=== PATIENT | female | born 1975 | race Caucasian/White ===

== ENCOUNTER 2020-05-18 08:00 | Outpatient (CLI) | payer BC, OTHER ==
[2020-05-18 07:56] LABS: BASOPHILS % (AUTO) 0.5 %; EOSINOPHILS # (AUTO) 0.2 10^3/uL (0.0-0.7); EOSINOPHILS % (AUTO) 3.2 %; HGB - HEMOGLOBIN 14.4 g/dL (12.0-16.0); LYMPHOCYTES # (AUTO) 1.7 10^3/uL (1.5-3.5); LYMPHOCYTES % (AUTO) 26.9 %; MEAN CORPUSCULAR HEMOGLOBIN 29.3 pg (27.0-31.0); MEAN CORPUSCULAR HGB CONC 32.1 g/dL (32.0-36.0); MEAN CORPUSCULAR VOLUME 91.4 fL (81.0-99.0); MEAN PLATELET VOLUME 8.3 fL (7.9-10.8); MONOCYTES # (AUTO) 0.4 10^3/uL (0.0-1.0); NEUTROPHILS % (AUTO) 62.5 %; PLT - PLATELET COUNT 209 10^3/uL (130-450); RED BLOOD COUNT 4.91 10^6/uL (4.20-5.40); RED CELL DISTRIBUTION WIDTH 12.8 % (12.0-15.0); WHITE BLOOD COUNT 6.3 x10^3/uL (4.8-10.8)
[2020-05-18 08:29] LABS: % IRON SATURATION 15 % (20-50); IRON 69 ug/dL (28-170); TOTAL IRON BINDING CAPACITY 469 ug/dL (250-450); TRANSFERRIN 335 mg/dL (192-382)
== END 2020-05-18 23:59 | disposition home or self-care (01) ==
LOC: LAB 08:00
PROVIDERS: ATTEND Physician Assistant
DX: D50.9 Iron deficiency anemia, unspecified (principal)
CPT/HCPCS: 36415; 82728; 83540; 84466; 85025

== ENCOUNTER 2020-08-08 08:20 | Outpatient (CLI) | payer BC ==
--- NOTE | 2020-08-09 12:20 | Mammography Report ---
BILATERAL DIGITAL DIAGNOSTIC MAMMOGRAM 3D/2D: 08/08/2020 CLINICAL: Diffuse left breast pain. Comparison is made to exams dated: 08/15/2019 mammogram, 12/28/2018 mammogram, 03/08/2018 mammogram, an d 02/20/2016 mammogram - [facility]. There are scattered fibroglandular elements in both vincent sts. The patient is status post reduction both breasts. No significant masses, calcifications, or other findings are seen in either breast. IMPRESSION: INCOMPLETE: NEEDS ADDITIONAL IMAGING EVALUATION There is no abnormality seen in the left breast to correspond with the area of clinical concern and p ain at 12 o'clock axis or in the sub-areolar depth. An ultrasound is recommended for further evaluat ion and is scheduled to immediately follow this examination. This exam was interpreted at Station ID: [id number]. NOTE: For mammograms, a report in lay terms will be sent to the patient. Approximately 15% of breast malignancies will not be visualized mammographically. In the management of a palpable breast mass, a negative mammogram must not discourage biopsy of a clinically suspicious lesion. Electronically Signed By: Sekou Pérez M.D. aty/:08/08/2020 09:25:11 ACR BI-RADS Category 0: Incomplete 3340F PARENCHYMAL PATTERN: (A) - The breast(s) demonstrate(s) scattered fibroglandular densities. BI-RADS CATEGORY: (0) - 0 Ultrasound [id number] Immediate follow-up LATERALITY: (L)
--- NOTE | 2020-08-09 12:20 | Ultrasound Report ---
LIMITED ULTRASOUND OF LEFT BREAST: 08/08/2020 CLINICAL: Diffuse left breast pain. Comparison is made to exams dated: 08/08/2020 mammogram - [facility], 08/15/2019 mamm ogram, 08/15/2019 ultrasound, 12/28/2018 mammogram, 12/28/2018 ultrasound, and 03/08/2018 mammogram - [facility]. Real-time ultrasound of the left breast 12 o'clock, and retroareolar regions was performed. Wagner sc agustin images of the real-time examination were reviewed. No significant abnormalities were seen sonographically in the left breast. IMPRESSION: NEGATIVE There is no sonographic evidence of malignancy. There is no abnormality seen in the left breast to correspond with the area of clinical concern and p ain along the 12 o'clock axis or in the retroareolar breast, however, recommend clinical follow up fo r persistent or worsening symptoms, or development of any clinically suspicious findings. A 1 year screening mammogram is recommended. Findings and recommendations were conveyed to the patient during today's evaluation. This exam was interpreted at Station ID: [id number]. Electronically Signed By: Sekou Pérez M.D. aty/:08/08/2020 09:44:16 Ultrasound BI-RADS: 1 Negative BI-RADS CATEGORY: (1) - 1 RECOMMENDATION: (ANNUAL) - Recommend routine annual screening mammography. [id number] 1 year screening LATERALITY: (B)
== END 2020-08-08 08:21 | disposition home or self-care (01) ==
LOC: DI 08:20
PROVIDERS: ATTEND Physician Assistant
DX: N64.4 Mastodynia (principal); N64.59 Other signs and symptoms in breast

== ENCOUNTER 2021-10-28 06:44 | Outpatient (CLI) | payer BC ==
[2021-10-28 07:13] LABS: BASOPHILS % (AUTO) 0.4 %; EOSINOPHILS # (AUTO) 0.1 10^3/uL (0.0-0.7); EOSINOPHILS % (AUTO) 2.2 %; HGB - HEMOGLOBIN 14.3 g/dL (12.0-16.0); LYMPHOCYTES # (AUTO) 1.7 10^3/uL (1.5-3.5); LYMPHOCYTES % (AUTO) 33.5 %; MEAN CORPUSCULAR HEMOGLOBIN 28.9 pg (27.0-31.0); MEAN CORPUSCULAR HGB CONC 32.5 g/dL (32.0-36.0); MEAN CORPUSCULAR VOLUME 88.9 fL (81.0-99.0); MONOCYTES # (AUTO) 0.3 10^3/uL (0.0-1.0); MONOCYTES % (AUTO) 5.8 %; NEUTROPHILS # (AUTO) 2.9 10^3/uL (1.5-6.6); NEUTROPHILS % (AUTO) 57.7 %; PLT - PLATELET COUNT 241 10^3/uL (130-450); RED BLOOD COUNT 4.95 10^6/uL (4.20-5.40); RED CELL DISTRIBUTION WIDTH 12.9 % (12.0-15.0)
[2021-10-28 07:18] LABS: ALBUMIN 4.4 g/dL (3.2-5.5); ALBUMIN/GLOBULIN RATIO 1.6 (1.0-2.2); ALKALINE PHOSPHATASE 35 IU/L (42-121); ALT ALANINE AMINOTRANSFERASE 11 IU/L (10-60); AST ASPARTATE AMINOTRANSFERASE 15 IU/L (10-42); BILIRUBIN,TOTAL 0.7 mg/dL (0.2-1.0); BUN - BLOOD UREA NITROGEN 10 mg/dL (6-20); CALCIUM 9.1 mg/dL (8.5-10.3); CARBON DIOXIDE - CO2 26 mmol/L (21-32); CHLORIDE 106 mmol/L (101-111); CHOLESTEROL 174 mg/dL; CREATININE 0.8 mg/dL (0.4-1.0); GFR - MDRD 77 (>89); GLUCOSE 122 mg/dL (70-100); HDL CHOLESTEROL 44 mg/dL; LDL CHOLESTEROL,CALCULATED 105 mg/dL; LDL/HDL RATIO 2.4 (<4.4); POTASSIUM 3.8 mmol/L (3.5-5.0); SODIUM 142 mmol/L (135-145); TOTAL PROTEIN 7.2 g/dL (6.7-8.2); TRIGLYCERIDES 126 mg/dL; VLDL CHOLESTEROL 25 mg/dL
[2021-10-28 07:29] LABS: THYROID STIMULATING HORMONE 3.13 uIU/mL (0.34-5.60)
== END 2021-10-28 06:45 | disposition home or self-care (01) ==
LOC: LAB 06:44
PROVIDERS: ATTEND Registered Nurse
DX: D64.9 Anemia, unspecified (principal); E88.81 Metabolic syndrome and other insulin resistance; Z13.220 Encounter for screening for lipoid disorders; Z13.29 Encounter for screening for other suspected endocrine disorder
CPT/HCPCS: 36415; 80053; 80061; 83721; 84443; 85025

== ENCOUNTER 2021-12-16 06:45 | Outpatient (CLI) | payer BC | END 2021-12-16 06:46 | disposition home or self-care (01) | LOC: LAB 06:45 | PROVIDERS: ATTEND Registered Nurse | DX: R73.9 Hyperglycemia, unspecified (principal) | CPT/HCPCS: 36415; 82947 ==

== ENCOUNTER 2022-01-24 12:33 | Outpatient (CLI) | payer BC ==
--- NOTE | 2022-01-27 11:10 | Mammography Report ---
BILATERAL DIGITAL DIAGNOSTIC MAMMOGRAM 3D/2D: 01/24/2022 CLINICAL: Diffuse chronic left breast numbness. Due for Bilateral. Comparison is made to exams dated: 08/08/2020 mammogram - [facility], 08/15/2019 mamm ogram, 12/28/2018 mammogram, 03/08/2018 mammogram, 02/20/2016 mammogram - [facility], and 08/09/19 ultrasound - [facility]. There are scattered areas of fibroglandular density in both breasts (category b / 25%-50% glandular t issue). There are benign post operative findings in both breasts. Left breast skin thickening appears unchang ed. No significant masses, calcifications, or other findings are seen in either breast. There has been no significant interval change. IMPRESSION: BENIGN There is no mammographic evidence of malignancy. A 1 year screening mammogram is recommended. Exam findings were conveyed to the patient. Patient is advised to monitor for significant change. Cli nical follow-up as needed. Based on the Tyrer Cuzick model (a risk assessment model) the patients lifetime risk is 8.5% and her 10 year risk is 1.6%. According to the ACR, ACS, and NCCN guidelines, an annual breast MRI exam kenny g with mammogram is recommended if the patients lifetime risk is 20% or greater. This exam was interpreted at Station ID: [id number]. NOTE: For mammograms, a report in lay terms will be sent to the patient. Approximately 15% of breast malignancies will not be visualized mammographically. In the management of a palpable breast mass, a negative mammogram must not discourage biopsy of a clinically suspicious lesion. Electronically Signed By: Yvon Knight M.D. slc/:01/24/2022 13:39:16 ACR BI-RADS Category 2: Benign Finding(s) 3342F PARENCHYMAL PATTERN: (A) - The breast(s) demonstrate(s) scattered fibroglandular densities. BI-RADS CATEGORY: (2) - 2 RECOMMENDATION: (ANNUAL) - Recommend routine annual screening mammography. [id number] 1 year screening LATERALITY: (B)
== END 2022-01-24 12:34 | disposition home or self-care (01) ==
LOC: DI 12:33
PROVIDERS: ATTEND Registered Nurse
DX: N64.4 Mastodynia (principal); N63.0 Unspecified lump in unspecified breast

== ENCOUNTER 2022-04-16 06:09 | Outpatient (CLI) | payer BC ==
[2022-04-16 06:26] LABS: CREATININE 0.7 mg/dL (0.4-1.0); POTASSIUM 4.1 mmol/L (3.5-5.0)
== END 2022-04-16 06:10 | disposition home or self-care (01) ==
LOC: LAB 06:09
PROVIDERS: ATTEND Registered Nurse
DX: R73.03 Prediabetes (principal); Z79.84 Long term (current) use of oral hypoglycemic drugs
CPT/HCPCS: 36415; 80048

== ENCOUNTER 2022-09-20 13:25 | Outpatient (CLI) | payer BC ==
--- NOTE | 2022-09-20 16:10 | XRAY Report ---
PROCEDURE: Foot 3 View LT INDICATIONS: WT PAIN IN LEFT FOOT TECHNIQUE: 3 views of the foot were acquired. COMPARISON: None. FINDINGS: Bones: No fractures or dislocations. No suspicious bony lesions. Plantar calcaneal spur Soft tissues: No suspicious soft tissue calcifications or masses. IMPRESSION: Degenerative changes without fracture Reviewed by: Clark Gauthier MD on 09/20/2022 3:09 PM [email or web address] Approved by: Clark Gauthier MD on 09/20/2022 3:09 PM AKDT Station ID: [id number]
== END 2022-09-20 13:26 | disposition home or self-care (01) ==
LOC: DI 13:25
PROVIDERS: ATTEND Registered Nurse
DX: M19.072 Primary osteoarthritis, left ankle and foot (principal)

== ENCOUNTER 2023-03-06 15:06 | Outpatient (CLI) | payer BC ==
--- NOTE | 2023-03-09 10:58 | Mammography Report ---
BILATERAL DIGITAL SCREENING MAMMOGRAM 3D/2D: 03/06/2023 CLINICAL: Routine screening. Comparison is made to exams dated: 01/24/2022 mammogram, 08/08/2020 mammogram - Located within [facility], 08/15/2019 mammogram, 12/28/2018 mammogram, 03/08/2018 mammogram, and 02/20/2016 mammogram - [facility]. There are scattered areas of fibroglandular density in both breasts (category b / 25%-50% glandular t issue). There is a possible irregular high density asymmetry with an indistinct margin in the left breast at 1 o'clock middle depth. No other significant masses, calcifications, or other findings are seen in either breast. IMPRESSION: INCOMPLETE: NEEDS ADDITIONAL IMAGING EVALUATION The possible irregular high density asymmetry in the left breast is indeterminate. Additional views with possible ultrasound are recommended. Based on the Tyrer Cuzick model (a risk assessment model) the patients lifetime risk is 8.6% and her 10 year risk is 1.7%. According to the ACR, ACS, and NCCN guidelines, an annual breast MRI exam kenny g with mammogram is recommended if the patients lifetime risk is 20% or greater. This exam was interpreted at Station ID: [id number]. NOTE: For mammograms, a report in lay terms will be sent to the patient. Approximately 15% of breast malignancies will not be visualized mammographically. In the management of a palpable breast mass, a negative mammogram must not discourage biopsy of a clinically suspicious lesion. Electronically Signed By: Lala leonard/roge:03/06/2023 17:50:30 ACR BI-RADS Category 0: Incomplete 3340F PARENCHYMAL PATTERN: (A) - The breast(s) demonstrate(s) scattered fibroglandular densities. BI-RADS CATEGORY: (0) - 0 Mammo and [place] [id number] Immediate follow-up LATERALITY: (B)
== END 2023-03-06 15:07 | disposition home or self-care (01) ==
LOC: DI 15:06
PROVIDERS: ATTEND Registered Nurse
DX: Z12.31 Encounter for screening mammogram for malignant neoplasm of breast (principal); R92.323 Mammographic fibroglandular density, bilateral breasts; R92.8 Other abnormal and inconclusive findings on diagnostic imaging of breast

== ENCOUNTER 2023-03-09 07:08 | Outpatient (CLI) | payer BC ==
[2023-03-09 07:29] LABS: BASOPHILS % (AUTO) 0.4 %; HCT - HEMATOCRIT 43.3 % (37.0-47.0); HGB - HEMOGLOBIN 13.9 g/dL (12.0-16.0); LYMPHOCYTES # (AUTO) 1.5 10^3/uL (1.5-3.5); LYMPHOCYTES % (AUTO) 26.4 %; MEAN CORPUSCULAR HEMOGLOBIN 28.9 pg (27.0-31.0); MEAN CORPUSCULAR HGB CONC 32.1 g/dL (32.0-36.0); MEAN PLATELET VOLUME 8.5 fL (7.9-10.8); MONOCYTES # (AUTO) 0.3 10^3/uL (0.0-1.0); NEUTROPHILS # (AUTO) 3.7 10^3/uL (1.5-6.6); NEUTROPHILS % (AUTO) 66.8 %; PLT - PLATELET COUNT 243 10^3/uL (130-450); RED BLOOD COUNT 4.81 10^6/uL (4.20-5.40); RED CELL DISTRIBUTION WIDTH 12.4 % (12.0-15.0); WHITE BLOOD COUNT 5.6 x10^3/uL (4.8-10.8)
[2023-03-09 07:55] LABS: ALBUMIN 4.5 g/dL (3.2-5.5); ALKALINE PHOSPHATASE 41 IU/L (42-121); ALT ALANINE AMINOTRANSFERASE 13 IU/L (10-60); AST ASPARTATE AMINOTRANSFERASE 13 IU/L (10-42); BILIRUBIN,TOTAL 0.8 mg/dL (0.2-1.0); BUN - BLOOD UREA NITROGEN 9 mg/dL (6-20); CALCIUM 9.1 mg/dL (8.5-10.3); CARBON DIOXIDE - CO2 27 mmol/L (21-32); CHLORIDE 106 mmol/L (101-111); CHOL/HDL RATIO 4.1 (<4.4); CHOLESTEROL 184 mg/dL; CREATININE 0.7 mg/dL (0.6-1.3); GFR - MDRD 90 (>89); GLUCOSE 114 mg/dL (74-104); HDL CHOLESTEROL 45 mg/dL; LDL CHOLESTEROL,CALCULATED 106 mg/dL; LDL/HDL RATIO 2.4 (<4.4); POTASSIUM 3.9 mmol/L (3.5-4.5); SODIUM 139 mmol/L (135-145); TOTAL PROTEIN 6.7 g/dL (6.4-8.9); TRIGLYCERIDES 164 mg/dL (48-352); VLDL CHOLESTEROL 33 mg/dL
[2023-03-09 09:40] LABS: ESTIMATED AVERAGE GLUCOSE 85 mg/dL (70-100); HEMOGLOBIN A1c% 4.6 % (4.27-6.07)
== END 2023-03-09 07:09 | disposition home or self-care (01) ==
LOC: LAB 07:08
PROVIDERS: ATTEND Registered Nurse
DX: R73.03 Prediabetes (principal); Z79.899 Other long term (current) drug therapy; R73.9 Hyperglycemia, unspecified; Z13.220 Encounter for screening for lipoid disorders
CPT/HCPCS: 36415; 80053; 80061; 83036; 83721; 85025

== ENCOUNTER 2023-03-31 12:39 | Outpatient (CLI) | payer BC ==
--- NOTE | 2023-04-01 08:13 | Mammography Report ---
UNILATERAL LEFT DIGITAL DIAGNOSTIC MAMMOGRAM 3D/2D: 03/31/2023 CLINICAL: Patient returns today to evaluate a focal asymmetry in the left breast. Comparison is made to exams dated: 03/06/2023 mammogram, 01/24/2022 mammogram, 08/08/2020 mammogram - [facility], 08/15/2019 mammogram, 12/28/2018 mammogram, and 03/08/2018 mammogram - [facility]. There are scattered areas of fibroglandular density in the left breast (category b / 25%-50% glandula r tissue). The possible irregular asymmetry with an indistinct margin in the left breast middle depth superior r egion is not seen in additional views. This is less prominent. No other significant masses or calcifications are seen in the breast. IMPRESSION: INCOMPLETE: NEEDS ADDITIONAL IMAGING EVALUATION The possible irregular asymmetry in the left breast most likely is fibroglandular tissue or fibrosis but remains indeterminate. An ultrasound is recommended. This was performed immediately following t his exam. Based on the Tyrer Cuzick model (a risk assessment model) the patients lifetime risk is 8.6% and her 10 year risk is 1.7%. According to the ACR, ACS, and NCCN guidelines, an annual breast MRI exam kenny g with mammogram is recommended if the patients lifetime risk is 20% or greater. This exam was interpreted at Station ID: [id number]. NOTE: For mammograms, a report in lay terms will be sent to the patient. Approximately 15% of breast malignancies will not be visualized mammographically. In the management of a palpable breast mass, a negative mammogram must not discourage biopsy of a clinically suspicious lesion. Electronically Signed By: Lala leonard/:03/31/2023 13:13:44 ACR BI-RADS Category 0: Incomplete 3340F PARENCHYMAL PATTERN: (A) - The breast(s) demonstrate(s) scattered fibroglandular densities. BI-RADS CATEGORY: (0) - 0 Ultrasound [id number] Immediate follow-up LATERALITY: (B)
--- NOTE | 2023-04-01 08:13 | Ultrasound Report ---
LIMITED ULTRASOUND OF LEFT BREAST: 03/31/2023 CLINICAL: Patient returns today to evaluate a focal asymmetry in the left breast. Comparison is made to exams dated: 03/31/2023 mammogram, 03/06/2023 mammogram, 01/24/2022 mammogram, 08/08/2020 ultrasound, 08/08/2020 mammogram - [facility], and 08/15/2019 mammogram - [facility]. Ultrasound of the left breast 11-1 o'clock region was performed. Wagner scale images of the real-time examination were reviewed. No significant abnormalities were seen sonographically in the left breast. Specifically, no finding to correspond to the patient's resolved screening mammographic abnormality. IMPRESSION: NEGATIVE There is no sonographic correlate to the patient's resolved screening mammographic asymmetry and no evidence of malignancy. Return to annual mammogram screening schedule is recommended. Findings and recommendations were conveyed to the patient at time of exam. This exam was interpreted at Station ID: [id number]. Electronically Signed By: Lala leonard/:03/31/2023 13:41:13 letter sent: No_Letter Ultrasound BI-RADS: 1 Negative BI-RADS CATEGORY: (1) - 1 Mammogram [id number] return to screening LATERALITY: (B)
== END 2023-03-31 12:40 | disposition home or self-care (01) ==
LOC: DI 12:39
PROVIDERS: ATTEND Registered Nurse
DX: R92.8 Other abnormal and inconclusive findings on diagnostic imaging of breast (principal); R92.322 Mammographic fibroglandular density, left breast

== ENCOUNTER 2023-08-06 16:28 | Outpatient (CLI) | payer BC ==
--- NOTE | 2023-08-07 08:11 | XRAY Report ---
PROCEDURE: Foot 1-2V RT INDICATIONS: BUNION, RIGHT FOOT TECHNIQUE: 2 views of the foot were acquired. COMPARISON: None. FINDINGS: Bones: No acute fractures or dislocations. No suspicious bony lesions. Moderate hallux valgus and moderate degenerative changes at the 1st metatarsophalangeal joint. Degenerative changes are seen at the interphalangeal joints of the toes. There is a prominent posterior calcaneal enthesophyte. Soft tissues: No suspicious soft tissue calcifications. IMPRESSION: 1.Moderate hallux valgus. 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 3.Posterior calcaneal enthesopathy. Reviewed by: Joseph Allen MD on 08/07/2023 8:10 AM PDT Approved by: Joseph Allen MD on 08/07/2023 8:10 AM PDT Station ID: [id number]
== END 2023-08-06 16:29 | disposition home or self-care (01) ==
LOC: DI 16:28
PROVIDERS: ATTEND Registered Nurse
DX: M20.11 Hallux valgus (acquired), right foot (principal); M19.071 Primary osteoarthritis, right ankle and foot; M77.31 Calcaneal spur, right foot

== ENCOUNTER 2023-10-26 09:07 | Outpatient (CLI) | payer BC ==
[2023-10-26 09:19] LABS: BASOPHILS % (AUTO) 0.3 %; HCT - HEMATOCRIT 41.4 % (37.0-47.0); HGB - HEMOGLOBIN 13.4 g/dL (12.0-16.0); LYMPHOCYTES # (AUTO) 1.5 10^3/uL (1.5-3.5); MEAN CORPUSCULAR HEMOGLOBIN 29.8 pg (27.0-31.0); MEAN CORPUSCULAR HGB CONC 32.4 g/dL (32.0-36.0); MEAN PLATELET VOLUME 8.4 fL (7.9-10.8); MONOCYTES # (AUTO) 0.3 10^3/uL (0.0-1.0); MONOCYTES % (AUTO) 4.6 %; NEUTROPHILS # (AUTO) 4.5 10^3/uL (1.5-6.6); NEUTROPHILS % (AUTO) 71.2 %; PLT - PLATELET COUNT 227 10^3/uL (130-450); RED CELL DISTRIBUTION WIDTH 12.6 % (12.0-15.0); WHITE BLOOD COUNT 6.4 x10^3/uL (4.8-10.8)
[2023-10-26 09:45] LABS: ALBUMIN 4.4 g/dL (3.2-5.5); ALKALINE PHOSPHATASE 37 IU/L (42-121); ALT ALANINE AMINOTRANSFERASE 13 IU/L (10-60); AST ASPARTATE AMINOTRANSFERASE 14 IU/L (10-42); BILIRUBIN,DIRECT < 0.10 mg/dL (0.03-0.18); BILIRUBIN,TOTAL 0.4 mg/dL (0.2-1.0); TOTAL PROTEIN 6.8 g/dL (6.4-8.9)
== END 2023-10-26 09:08 | disposition home or self-care (01) ==
LOC: LAB 09:07
DX: B35.1 Tinea unguium (principal)
CPT/HCPCS: 36415; 80076; 85025